=== PATIENT | male | born 1985 | race African-American/Black ===

== ENCOUNTER 2019-11-30 21:39 | Emergency (ER) | payer SELFPAY ==
[~2019-11-30] VITALS: Ht 182.9 cm; Wt 77.0 kg
[2019-12-01 07:05] VITALS: BP 119/74
== END 2019-12-01 07:06 | disposition home or self-care (01) ==
LOC: ER 21:39
DX: F10.129 Alcohol abuse with intoxication, unspecified (principal); R06.03 Acute respiratory distress; R51 Headache; Y90.9 Presence of alcohol in blood, level not specified
CPT/HCPCS: 99285

== ENCOUNTER 2020-05-27 21:11 | Emergency (ER) | payer SELFPAY ==
[~2020-05-27] VITALS: Ht 177.8 cm; Wt 77.0 kg
[2020-05-27 23:35] LABS: BASOPHILS % 0.8 % (0.0-2.0); HEMOGLOBIN. 13.3 g/dL (14.0-18.0); LYMPHOCYTES % 48.5 % (20.0-50.0); MEAN CORPUSCULAR HEMOGLOBIN 31.8 pg (28.0-32.0); MEAN CORPUSCULAR VOLUME 90.6 fL (80.0-94.0); MEAN PLATELET VOLUME 8.6 fl (7.4-10.4); MONOCYTES % 9.7 % (2.0-8.0); PLATELET 201 x1000/uL (130-400); RED BLOOD CELL COUNT 4.19 mill/uL (4.7-6.1); RED CELL DISTRIBUTION WIDTH 13.9 % (11.6-14.6)
[2020-05-27 23:37] LABS: CHLORIDE 107 mEq/L (98-107)
[2020-05-27 23:41] LABS: ETHANOL BLOOD 223 mg/dL
[2020-05-28 07:16] VITALS: BP 99/56
== END 2020-05-28 07:19 | disposition home or self-care (01) ==
LOC: ER 21:11
DX: F10.129 Alcohol abuse with intoxication, unspecified (principal); Y90.7 Blood alcohol level of 200-239 mg/100 ml; I10 Essential (primary) hypertension; E11.9 Type 2 diabetes mellitus without complications
CPT/HCPCS: 36415; 80053; 80320; 84484; 85025; 93005; 99285; G0480

== ENCOUNTER 2023-02-09 18:55 | Emergency (ER) | payer MEDICAID, OTHER ==
[~2023-02-09] VITALS: Ht 185.4 cm; Wt 75.0 kg
[2023-02-09] MEDS ORDERED: SODIUM CHLORIDE 0.9% 1,000 ML IV ONE (19:30)
[2023-02-09 23:00] VITALS: BP 124/100
[2023-02-09 23:14] LABS: EOSINOPHILS % 2.1 % (0.0-5.0); HEMATOCRIT. 39.2 % (42.0-52.0); HEMOGLOBIN. 13.2 g/dL (14.0-18.0); MEAN CORPUSCULAR HEMOGLOBIN 30.7 pg (28.0-32.0); MEAN CORPUSCULAR VOLUME 90.8 fL (80.0-94.0); MEAN PLATELET VOLUME 7.7 fl (7.4-10.4); MONOCYTES % 9.7 % (2.0-8.0); NEUTROPHILS % 43.2 % (40.0-76.0); PLATELET 248 x1000/uL (130-400); RED BLOOD CELL COUNT 4.32 mill/uL (4.7-6.1); RED CELL DISTRIBUTION WIDTH 14.3 % (11.6-14.6)
[2023-02-09 23:22] LABS: CHLORIDE 113 mEq/L (98-107)
[2023-02-09 23:36] LABS: ETHANOL BLOOD 382 mg/dL
== END 2023-02-10 07:12 | disposition home or self-care (01) ==
LOC: ER 18:55
DX: F10.129 Alcohol abuse with intoxication, unspecified (principal); Y90.8 Blood alcohol level of 240 mg/100 ml or more; R41.82 Altered mental status, unspecified
CPT/HCPCS: 36415; 80053; 80320; 85025; 99283; J7030; G0480